=== PATIENT | female | born 1970 | race Two or more races ===

== ENCOUNTER 2018-08-02 17:18 | Emergency (ER) | payer MEDICAID ==
[~2018-08-02] VITALS: Ht 167.6 cm; Wt 75.0 kg
[2018-08-02 17:22] VITALS: BP 118/82
== END 2018-08-02 17:55 | disposition left against medical advice (07) ==
LOC: ER 17:18
DX: Z53.21 Procedure and treatment not carried out due to patient leaving prior to being seen by health care provider (principal); I10 Essential (primary) hypertension; K74.60 Unspecified cirrhosis of liver; Z87.11 Personal history of peptic ulcer disease
CPT/HCPCS: 81025

== ENCOUNTER 2018-08-14 01:10 | Emergency (ER) | payer MEDICAID ==
[~2018-08-14] VITALS: Ht 167.6 cm; Wt 82.0 kg
[2018-08-14 01:18] VITALS: BP 132/104
== END 2018-08-14 01:30 | disposition left against medical advice (07) ==
LOC: ER 01:10
DX: Z53.21 Procedure and treatment not carried out due to patient leaving prior to being seen by health care provider (principal)

== ENCOUNTER 2018-08-15 23:12 | Emergency (ER) | payer MEDICAID ==
[~2018-08-15] VITALS: Ht 170.2 cm; Wt 100.0 kg
[2018-08-15 23:32] VITALS: BP 127/107
== END 2018-08-16 01:30 | disposition left against medical advice (07) ==
LOC: ER 23:12
DX: Z53.21 Procedure and treatment not carried out due to patient leaving prior to being seen by health care provider (principal); I12.9 Hypertensive chronic kidney disease with stage 1 through stage 4 chronic kidney disease, or unspecified chronic kidney disease; N18.9 Chronic kidney disease, unspecified; R56.9 Unspecified convulsions